=== PATIENT | female | born 1955 | race Caucasian/White ===

== ENCOUNTER 2017-03-01 12:00 | Day surgery (SDC) | payer BC ==
[2017-02-28 11:51] VITALS: BMI 41.0
[2017-03-01 13:25] VITALS: TEMP 97.5
[2017-03-01 14:55] LABS: BASOPHIL 0.4 % (0-2.0); EOSINOPHIL 1.3 % (0-4.5); MCH 29.8 pg (25.7-33.7); MCHC 33.9 g/dl (32.0-36.0); MEAN CELL VOLUME 87.8 fl (80-96); MEAN PLT VOLUME 8.7 fl (7.5-11.1); NEUTROPHILS 70.7 % (42.8-82.8); PLATELET COUNT 167 K/MM3 (134-434); RDW 13.4 % (11.6-15.6)
[2017-03-01 15:08] VITALS: BP 122/73; PULSE 69
[2017-03-01 15:34] LABS: ALBUMIN 3.3 g/dl (3.4-5.0); ALK PHOS 81 U/L (45-117); ANION GAP 10 (8-16); BILIRUBIN,TOTAL 0.9 mg/dL (0.2-1.0); CALCIUM 8.6 mg/dL (8.5-10.1); CO2 26 mmol/L (21-32); CREATININE 0.7 mg/dL (0.55-1.02); FERRITIN 103.562 ng/ml (6.9-282.5); GLUCOSE,RANDOM 76 mg/dL (74-106); SGOT/AST 23 U/L (15-37); SGPT/ALT 27 U/L (12-78); TOT PROT 5.9 g/dl (6.4-8.2)
--- NOTE | 2017-03-04 11:51 | PATH ---
Surgical Pathology Report Patient Name: ARCELIA JOHNSON [facility]. Rec. #: [id number] /Age/Gender: 1955 (Age: 61) / F Account: [id number] Location: U-ENDOSCOPY Taken: 03/01/2017 Received: 03/01/2017 Reported: 03/04/2017 Physicians: Emil Richter M.D. Specimen(s) Received A: BX 2ND PORTION DUODENUM/BULB B: BX ANTRUM C: BX GE JUNCTION Clinical History Abdominal pain Duodenal ulcer, gastritis, hiatal hernia Final Diagnosis A. DUODENUM, SECOND PORTION AND BULB, BIOPSY: DUODENAL MUCOSA WITH CHRONIC INFLAMMATION, [place] HYPERPLASIA AND FOCAL GASTRIC METAPLASIA CONSISTENT WITH PEPTIC DUODENITIS. NO HISTOLOGIC EVIDENCE OF GLUTEN SENSITIVE ENTEROPATHY (CELIAC DISEASE). B. STOMACH, ANTRUM, BIOPSY: GASTRIC ANTRAL MUCOSA WITH MODERATE CHRONIC GASTRITIS. IMMUNOSTAIN FOR H. PYLORI IS NEGATIVE FOR ORGANISMS. C. GE JUNCTION, BIOPSY: SQUAMOUS EPITHELIUM WITH CHRONIC INFLAMMATION AND REFLUX TYPE CHANGES. NO COLUMNAR EPITHELIUM PRESENT (NO INTESTINAL METAPLASIA /BECKETT'S ESOPHAGUS IDENTIFIED). Electronically Signed Rob Griffiths M.D. Gross Description A. Received in formalin, labeled "biopsy second portion of duodenum and duodenal bulb" are 3 preston, irregular portions of soft tissue ranging from 0.3-0.4 cm in greatest dimension. The specimens are submitted in toto in one cassette. B. Received in formalin, labeled "biopsy antrum" are 4 preston, irregular portions of soft tissue ranging from 0.1-0.5 cm in greatest dimension. The specimens are submitted in toto in one cassette. C. Received in formalin, labeled "biopsy GE junction" are 2 preston, irregular portions of soft tissue measuring 0.1 and 0.3 cm in greatest dimension. The specimens are submitted in toto in one cassette. 03/01/201703/01/2017
[2017-03-05 06:10] LABS: SERUM IRON 106 ug/dL (27-159); TOTAL IRON BINDING CAPACITY 297 ug/dL (250-450); UIBC 191 ug/dL (131-425)
[2017-03-05 16:30] LABS: GASTRIN 12 pg/mL (0-115)
== END 2017-03-01 15:00 | disposition home or self-care (01) ==
LOC: JASU-ENDO 12:00
PROVIDERS: ATTEND Internal Medicine Gastroenterology
PROC: 0DB68ZX Excision of Stomach, Via Natural or Artificial Opening Endoscopic, Diagnostic (ICD-10-PCS; 2017-03-01)
PROC: 0DB38ZX Excision of Lower Esophagus, Via Natural or Artificial Opening Endoscopic, Diagnostic (ICD-10-PCS; principal; 2017-03-01 13:00)
DX: K21.9 Gastro-esophageal reflux disease without esophagitis (principal); K44.9 Diaphragmatic hernia without obstruction or gangrene; K25.9 Gastric ulcer, unspecified as acute or chronic, without hemorrhage or perforation; K29.80 Duodenitis without bleeding; K26.9 Duodenal ulcer, unspecified as acute or chronic, without hemorrhage or perforation
CPT/HCPCS: 36415; 80053; 82103; 82172; 82247; 82390; 82465; 82728; 82941; 82947; 82977; 83010; 83516; 83540; 83550; 83883; 84450; 84460; 84478; 85025; 86038; 88305-TC; 88342-TC

== ENCOUNTER 2018-10-07 06:05 | Inpatient (IN) | payer BC ==
[2018-10-07] MEDS ORDERED: oxyCODONE HCL 10 MG SUSTAINED ACTING TABLET PO ONE (06:37)
[2018-10-07] MEDS ORDERED: CELECOXIB 200 MG CAPSULE PO ONE (06:37)
[2018-10-07] MEDS ORDERED: CEFAZOLIN 2 GM in DEXTROSE 5%-WATER - 50 ML IVPB ONE (06:37)
[2018-10-07] MEDS ORDERED: TRANEXAMIC ACID 1000 MG/10 ML VIAL IVPUSH ONE (06:37)
[2018-10-07] MEDS ORDERED: GABAPENTIN 300 MG CAPSULE (FP) PO ONE (06:37)
[2018-10-07 06:44] VITALS: BMI 40.6
[2018-10-07] MEDS ORDERED: BUPIVACAINE LIPOSOME/PF (EXPAREL) 266 MG/20 ML VIAL ONE (07:15)
[2018-10-07] MEDS ORDERED: MIDAZOLAM HCL 2 MG/2 ML SINGLE DOSE VIAL ONE ×2 (07:15→08:28)
[2018-10-07] MEDS ORDERED: SODIUM CHLORIDE 0.9% P/F 10 ML VIAL IJ ONE (07:15)
--- NOTE | 2018-10-07 07:57 | HP ---
Satellite [facility] - Chief Complaint Chief Complaint: left knee pain - Past Medical History Allergies/Adverse Reactions: Allergies Allergy/AdvReac Type Severity Reaction Status Date / Time No Known Drug Allergies Allergy Verified 09/16/18 14:52 - Current Medications Current Medications: Home Medications Medication Instructions Recorded Montelukast Na [Singulair -] 10 mg PO HS 12/24/13 Cholecalciferol (Vitamin D3) 400 unit PO DAILY 03/01/17 [Vitamin D -] Cranberry 400 mg PO DAILY 03/01/17 Fluticasone/Vilanterol [Breo 1 each IH BID 03/01/17 Ellipta 100-25 Mcg INH] Pantoprazole Sodium 40 mg PO DAILY #90 tablet. 03/01/17 Olmesartan Medoxomil 40 mg PO DAILY 09/16/18 Satellite Physical Exam - Physical Examination Vital Signs: Vital Signs Period Temp Pulse Resp BP Sys/Good Pulse Ox Last 24 Hr 98.1 F 70 18 130/75 General Appearance: Well Nourished, Well Developed, Alert & Oriented x3 ENT: Clear Lung: Normal air movement Heart: Regular rate & rhythm Extremities: Other (left knee- + swelling, + ttp, dec rom, nvi xrays show grade 4 tricompartmental djd) Neurological: Intact, Alert, Oriented Satellite Impression/Plan - Impression/Plan Impression: left knee djd Operative Procedure: left singh tkr Date to be Performed: 10/07/18
[2018-10-07] MEDS ORDERED: ceFAZolin SODIUM 1 GM VIAL ONE (08:30)
[2018-10-07] MEDS ORDERED: PROPOFOL 20 ML ONE ×2 (08:33)
[2018-10-07] MEDS ORDERED: ePHEDrine SULFATE 50 MG/1 ML AMPULE ONE (08:42)
[2018-10-07] MEDS ORDERED: GLYCOPYRROLATE 0.2 MG/1 ML VIAL ONE (08:46)
[2018-10-07] MEDS ORDERED: PHENYLEPHRINE HCL 10 MG/1 ML SINGLE DOSE VIAL ONE (09:09)
[2018-10-07] MEDS ORDERED: MAG HYDROX/AL HYDROX/SIMETH 30 ML UNIT-DOSE CUP PO PRN (09:58)
[2018-10-07] MEDS ORDERED: ONDANSETRON 4 MG/2 ML VIAL IVPUSH PRN ×2 (09:58→10:15)
[2018-10-07] MEDS ORDERED: MAGNESIUM HYDROX 2400MG/30ML ORAL SUSPENSION 30 ML CUP PO PRN (09:58)
[2018-10-07] MEDS ORDERED: LACTATED RINGERS SOLUTION 1,000 ML IV SCH ×2 (10:00→10:15)
[2018-10-07] MEDS ORDERED: PATIENT'S OWN MEDICATION (NON-FORMULARY) (Olmesartan Medoxomil [Olmesartan Medoxomil] 40 M PO SCH (10:00)
--- NOTE | 2018-10-07 10:00 | OP ---
Operative Note - Note: Operative Date: 10/07/18 (yesica) Pre-Operative Diagnosis: left knee djd Operation: left singh tkr Post-Operative Diagnosis: Same as Pre-op Surgeon: Boo Morales Continuous Miner: Jaylen Thomson) Anesthesiologist/WAX PUMPER: Armando Wright Anesthesia: Spinal, Local Specimens Removed: bone fragments Estimated Blood Loss (mls): 150 Operative Report Dictated: Yes
[2018-10-07] MEDS ORDERED: ACETAMINOPHEN 1000 MG/100 ML VIAL (NON FORMULARY) IVPB ONE (10:15)
[2018-10-07] MEDS ORDERED: ONDANSETRON 4 MG/2 ML VIAL ONE (11:27)
[2018-10-07] MEDS: oxyCODONE HCL 5 MG TABLET PO PRN ×3 (11:45→19:24)
[2018-10-07] MEDS ORDERED: oxyCODONE HCL 5 MG TABLET ONE (11:48)
--- NOTE | 2018-10-07 15:09 | SPEC ---
DATE OF OPERATION: 10/07/2018 PREOPERATIVE DIAGNOSIS: Degenerative joint disease, left knee. POSTOPERATIVE DIAGNOSIS: Degenerative joint disease, left knee. PROCEDURE: Left total knee replacement with robotic-assisted navigation (MAKOplasty). SURGICAL ATTENDING: Boo Morales MD MACHINE STAKER: MOHSEN Norwood SECOND TIE TAPE MACHINE OPERATOR : Kaila Barcenas MD ANESTHESIA: Regional and spinal. CLOSURE: A Press-Fit Triathlon knee system with a 4 femur, 4 tibia, 9 polyethylene, a 32 patella; No. 1 Vicryl, fascia; 0 and 2-0 for subcutaneous; and 3-0 Monocryl subcuticular with skin glue for skin; 4-0 undyed Vicryl for pin sites. ESTIMATED BLOOD LOSS: 100 mL. COMPLICATIONS: None. CONDITION: To recovery room in stable condition. DESCRIPTION OF OPERATIVE PROCEDURE: Patient was taken to the operating room on October 07, 2018. Regional and spinal anesthesia was administered by the anesthesiologist. IV Kefzol was administered prophylactically prior to the case as well as TXA. The left lower extremity was prepped and draped in the usual sterile fashion. The midline 10- to 12-cm longitudinal incision was made. Hemostasis was achieved with Bovie cautery. Sharp dissection was carried down to the extensor mechanism which was perform the procedure. Medial parapatellar arthrotomy was then performed, leaving a cuff of tissue for later closure. The patella was inverted and the knee was flexed up. The fat pad was excised. Subperiosteal dissection was done on the anteromedial proximal tibia until the knee was able to be brought forward. This was facilitated by taking the ACL, PCL and medial and lateral menisci. Checkpoints were placed in both the femur and in the tibia. Two parallel threaded pins were drilled superior to the knee joint through the already made incision from anterior to posterior just going through the anterior cortex but just engaging but not going through the posterior cortex. Two threaded pins were drilled through 2 small stab incisions in parallel fashion 1 handbreadth below the tibial tubercle through the anterior cortex of the tibia and engaging but not going through the posterior cortex. Both sets of pins were attached to navigation arrays for the JORGE system. The knee was then registered with the navigation system with center of rotation of the hip, medial and lateral malleoli and multiple sites both on the tibia and on the femur. Confirmation of excellent registration was confirmed by "popping the bubbles." At this time, the knee was thoroughly inspected to remove all osteophytes around the knee. The knee was then tensioned in varus/valgus at both full extension and at 90 degrees of flexion to ascertain our gaps. The virtual position of the components was optimized to ensure equal gaps throughout the range of motion. Once this was performed, the robot was brought into the field, was registered. The bone was cut as per the specifications on both the tibia and on the femur. The box cuts were then made as well. Excellent trial stability was obtained on the femur. The tibial baseplate was allowed to "find itself" and then was clipped into place. Confirmation of excellent external rotation of that component was confirmed by the navigation device as well. The patella was calibered for thickness and cut at the appropriate level. The appropriate lollipop was used to drill 3 holes in the patella and a trial asymmetric patellar button was applied. The knee was taken through a range of motion and found to have excellent stability from full extension to full flexion with excellent tracking of the patella. The trial components were then removed. The lug holes were drilled in the femur. The cementless keel was punched in the tibia. The real Press-Fit components were malleted into place, first with the tibia and then with the femur, and then the patella was crimped into place as well. The real polyethylene liner was then clipped into place. Range of motion, stability and tracking were as described earlier. The knee was thoroughly irrigated with copious amounts of irrigation. Vancomycin powder was placed inside the joint. The medial parapatellar arthrotomy was then closed using No. 1 Vicryl interrupted suture. Post closure of the arthrotomy, the knee was taken through a range of motion and found to have no undue tension on the repair. The subcutaneous was then pulse antibiotic irrigated, closed with 0 and 2-0 Vicryl and 3-0 Monocryl subcuticular with skin glue for the skin. Prior to closure, the checkpoints were removed as were the threaded pins. The tibial pin sites were closed with 4-0 undyed Vicryl. A sterile pressure Aquacel dressing was applied. No tourniquet was used during the case. The total blood loss was approximately 100 mL. No complication. Patient was transferred to recovery in stable condition. KAILA BARCENAS M.D. RICHAR/[id number] RBITT
[2018-10-07] MEDS: CEFAZOLIN 2 GM/D5W 2 GM/50 ML ML IVPB SCH (17:02)
[2018-10-07] MEDS: MONTELUKAST NA 10 MG TABLET PO SCH (21:22)
[2018-10-07] MEDS: oxyCODONE HCL 10 MG SUSTAINED ACTING TABLET PO SCH (21:23)
[2018-10-07] MEDS: SENNOSIDES/DOCUSATE COMBO (SENNA PLUS) TABLET (UD) PO SCH (21:23)
[2018-10-07] MEDS: GABAPENTIN 300 MG CAPSULE (FP) PO SCH (21:23)
[2018-10-08] MEDS: CEFAZOLIN 2 GM/D5W 2 GM/50 ML ML IVPB SCH (00:36)
[2018-10-08] MEDS: oxyCODONE HCL 5 MG TABLET PO PRN ×5 (00:39→22:35)
[2018-10-08] MEDS: PANTOPRAZOLE 40 MG TABLET (FP) PO SCH ×2 (07:29→09:30)
[2018-10-08] MEDS: SENNOSIDES/DOCUSATE COMBO (SENNA PLUS) TABLET (UD) PO SCH ×3 (07:29→21:25)
[2018-10-08] MEDS: MULTIVITAMINS (DAILY MVI) TABLET (FP) PO SCH ×2 (07:29→09:30)
[2018-10-08] MEDS: ASPIRIN 325 MG TABLET PO SCH (07:59)
[2018-10-08 08:24] LABS: HEMOGLOBIN 12.4 GM/dl (10.7-15.3); MCH 31.1 pg (25.7-33.7); MCHC 34.3 g/dl (32.0-36.0); MEAN CELL VOLUME 90.7 fl (80-96); MEAN PLT VOLUME 9.1 fl (7.5-11.1); PLATELET COUNT 163 K/MM3 (134-434); RBC 3.96 M/mm3 (3.60-5.2); WHITE BLOOD COUNT 8.8 K/mm3 (4.0-10.8)
[2018-10-08] MEDS: GABAPENTIN 300 MG CAPSULE (FP) PO SCH ×2 (09:29→21:25)
[2018-10-08] MEDS: oxyCODONE HCL 10 MG SUSTAINED ACTING TABLET PO SCH ×2 (09:30→21:26)
[2018-10-08] MEDS: VALSARTAN 160 MG TABLET (UD) PO SCH (09:31)
--- NOTE | 2018-10-08 10:15 | PN ---
Progress Note (short form) - Note Progress Note: Ortho Pt seen and examined s/p left singh tkr pod #1 Selected Entries 10/08/18 09:28 Temperature 98.3 F Pulse Rate 61 Respiratory 18 Rate Blood Pressure 100/48 L Laboratory Tests 10/08/18 08:00 WBC 8.8 Hgb 12.4 Hct 36.0 Plt Count 163 dressing c/d/i, calf soft, nt rom 0-30, nvi a/p PT dvt ppx pain control d/c home tomorrow if stable
[2018-10-08] MEDS ORDERED: ZOLPIDEM TARTRATE 5 MG TABLET PO PRN (10:16)
--- NOTE | 2018-10-08 12:16 | PN ---
Progress Note (short form) - Note Progress Note: ANESTHESIA POSTOP 63 yo female POD 1 s/p TKA Patient doing well. Tolerating PO. Ambulating with some pain but able to participated in PT. O: VSS, Afebrile A/P: Continue current care. Encouraged ambulation and active PT participation. No complications evident
[2018-10-08] MEDS ORDERED: PT OWN MED DRAWER 7, Y5N ONE (21:18)
[2018-10-08] MEDS: MONTELUKAST NA 10 MG TABLET PO SCH (21:25)
[2018-10-09] MEDS ORDERED: SODIUM CHLORIDE 500 ML IV STA (06:57)
[2018-10-09] MEDS: ASPIRIN 325 MG TABLET PO SCH (08:01)
[2018-10-09 08:17] LABS: HEMATOCRIT 32.6 % (32.4-45.2); HEMOGLOBIN 10.7 GM/dl (10.7-15.3); MCH 29.8 pg (25.7-33.7); MCHC 32.7 g/dl (32.0-36.0); MEAN CELL VOLUME 90.9 fl (80-96); PLATELET COUNT 152 K/MM3 (134-434); RBC 3.58 M/mm3 (3.60-5.2); RDW 11.8 % (11.6-15.6); WHITE BLOOD COUNT 11.8 K/mm3 (4.0-10.8)
[2018-10-09] MEDS: KETOROLAC TROMETHAMINE 30 MG/1 ML VIAL IVPUSH SCH ×3 (09:54→22:05)
[2018-10-09] MEDS: PANTOPRAZOLE 40 MG TABLET (FP) PO SCH (09:55)
[2018-10-09] MEDS: GABAPENTIN 300 MG CAPSULE (FP) PO SCH ×2 (09:55→22:05)
[2018-10-09] MEDS: SENNOSIDES/DOCUSATE COMBO (SENNA PLUS) TABLET (UD) PO SCH ×2 (09:55→22:06)
[2018-10-09] MEDS: MULTIVITAMINS (DAILY MVI) TABLET (FP) PO SCH (09:55)
[2018-10-09] MEDS: oxyCODONE HCL 10 MG SUSTAINED ACTING TABLET PO SCH ×2 (09:56→22:07)
[2018-10-09] MEDS: VALSARTAN 160 MG TABLET (UD) PO SCH (09:56)
--- NOTE | 2018-10-09 09:57 | PN ---
Progress Note (short form) - Note Progress Note: Ortho Pt seen and examined s/p left singh tkr pod #2- pt having low BP Selected Entries 10/09/18 09:27 Temperature 98.8 F Pulse Rate 97 H Respiratory 19 Rate Blood Pressure 79/37 L Laboratory Tests 10/09/18 07:35 WBC 11.8 H Hgb 10.7 Hct 32.6 Plt Count 152 dressing c/d/i, calf soft, nt rom 0-40, nvi a/p D/c narcotics- switched to tylenol and toradol Continue IVF Monitor BP PT dvt ppx pain control d/c home tomorrow if stable
[2018-10-09] MEDS: MONTELUKAST NA 10 MG TABLET PO SCH (22:06)
[2018-10-10] MEDS: KETOROLAC TROMETHAMINE 30 MG/1 ML VIAL IVPUSH SCH (03:09)
[2018-10-10 06:48] VITALS: BP 96/49; PULSE 78; TEMP 98.6
[2018-10-10] MEDS: ASPIRIN 325 MG TABLET PO SCH (09:00)
[2018-10-10] MEDS ORDERED: PT OWN MED DRAWER 7, Y5N ONE (09:08)
--- NOTE | 2018-10-10 09:13 | PN ---
Progress Note (short form) - Note Progress Note: Ortho Pt seen and examined s/p left singh tkr pod #3- BP improved. Pt states she is feeling much better today Selected Entries 10/10/18 06:45 Temperature 98.6 F Pulse Rate 78 Respiratory 18 Rate Blood Pressure 96/49 L Laboratory Tests 10/09/18 07:35 WBC 11.8 H Hgb 10.7 Hct 32.6 Plt Count 152 dressing c/d/i, calf soft, nt rom 0-70, nvi a/p PT dvt ppx pain control hold BP meds today- restart tomorrow d/c to rehab today f/u in the office in 7-10 days
--- NOTE | 2018-10-10 09:15 | DS ---
Physical Examination Vital Signs: Vital Signs Temperature 98.6 F 10/10/18 06:45 Pulse Rate 78 10/10/18 06:45 Respiratory Rate 18 10/10/18 06:45 Blood Pressure 96/49 L 10/10/18 06:45 O2 Sat by Pulse Oximetry (%) 99 10/10/18 08:21 Labs: CBC, BMP 10/09/18 07:35 Discharge Summary Reason For Visit: OSTEOARTHRITIS Procedures: Principal: left tkr Hospital Course: admitted for elective left singh tkr, had hypotension but has improved, otherwise uneventful post-op, stable for d/c Condition: Good - Instructions Diet, Activity, Other Instructions: Post-op Instructions-Total Knee Replacement Call the office for a follow-up appointment in 1 week - [phone] Aspirin 325mg daily for 6 weeks. Pain medication was sent into your pharmacy. Apply Graduated Compression Stockings (TEDs) to both lower extremities- remove daily for hygiene ONLY Apply Sequential Compression Device (SCDs) to both Lower extremities remove for PT and hygiene ONLY Apply cold packs to affected area for 15 minutes every 2 hours. Physical Therapist will come to your home for the first 5 days. You will be set up with outpatient PT at your first post-operative visit. Patient may ambulate as tolerated-encourage self care (at least every 2-3 hours while awake) with walker or cane Maintain Aquacel (waterproof) dressing to operative wound (will be removed by surgeon at first office visit) Shower with Aquacel dressing in place-if Aquacel integrity compromised, remove and apply dry sterile dressing and notify Orthopedist. DO NOT SHOWER unless Orthopedists approves without Aquacel dressing CONTACT THE OFFICE FOR ANY CHANGE IN YOUR CONDITION (for example-fever greater than 102 degrees, excessive bleeding from operative site, purulent drainage, severe swelling or pain) GO TO THE EMERGENCY ROOM IF THERE IS A MEDICAL EMERGENCY Knee Precautions: * Keep a rolled towel under affected heel while in bed or chair (to keep knee in extension) * Keep affected leg elevated except during mealtimes * DO NOT PLACE PILLOW UNDER AFFECTED KNEE * If you have any questions, please do not hesitate to call the office - [phone]. Referrals: Emil Barcenas MD [Staff Physician] - Disposition: [facility]ILITY - Home Medications Comprehensive Discharge Medication List: Ambulatory Orders Luiza Vidal [Kofiir -] 10 mg PO HS 12/24/13 Cholecalciferol (Vitamin D3) [Vitamin D -] 400 unit PO DAILY 03/01/17 Cranberry 400 mg PO DAILY 03/01/17 Fluticasone/Vilanterol [Breo Ellipta 100-25 Mcg INH] 1 each IH BID 03/01/17 Pantoprazole Sodium 40 mg PO DAILY #90 tablet. 03/01/17 Olmesartan Medoxomil 40 mg PO DAILY 09/16/18 Aspirin [ASA -] 325 mg PO DAILY@0800 tablet 10/07/18 Oxycodone HCl/Acetaminophen [Percocet 5-325 mg Tablet -] 1 - 2 tab PO Q6H #50 tab MDD 8 10/07/18
[2018-10-10] MEDS: oxyCODONE HCL 10 MG SUSTAINED ACTING TABLET PO SCH (09:23)
[2018-10-10] MEDS: GABAPENTIN 300 MG CAPSULE (FP) PO SCH (09:23)
[2018-10-10] MEDS: SENNOSIDES/DOCUSATE COMBO (SENNA PLUS) TABLET (UD) PO SCH (09:24)
[2018-10-10] MEDS: PANTOPRAZOLE 40 MG TABLET (FP) PO SCH (09:24)
[2018-10-10] MEDS: MULTIVITAMINS (DAILY MVI) TABLET (FP) PO SCH (09:25)
--- NOTE | 2018-10-13 13:06 | PATH ---
Surgical Pathology Report Patient Name: ARCELIA JOHNSON Med. Rec. #: [id number] /Age/Gender: 1955 (Age: 63) / F Account: [id number] Location: [facility] MED-SURG Taken: 10/07/2018 Received: 10/07/2018 Reported: 10/13/2018 Physicians: Boo Morales M.D. Specimen(s) Received BONE LEFT KNEE Clinical History Osteoarthritis left knee Final Diagnosis BONE, LEFT KNEE, TOTAL KNEE REPLACEMENT: DEGENERATIVE JOINT DISEASE. Electronically Signed Barb Nur M.D. Gross Description Received in formalin labeled "bone left knee," is a 9.0 x 8.0 x 2.0 cm aggregate of multiple portions of bone and soft tissue. The tibial plateau measures 7.1 x 5.0 x 1.3 cm. There is a 1.8 cm greatest dimension area of eburnation present. The remaining articular surfaces are preston-yellow and focally granular. The underlying trabecular bone is yellow and hard. Grain Distributor sections are submitted in one cassette, following decalcification. /10/09/2018 [facility]10/09/2018
== END 2018-10-10 13:22 | DRG 470 ==
LOC: FM/S 06:05
PROVIDERS: ADMIT Orthopaedic Surgery; ATTEND Orthopaedic Surgery
PROC: 8E0Y0CZ Robotic Assisted Procedure of Lower Extremity, Open Approach (ICD-10-PCS; 2018-10-07)
PROC: 0SRD0JZ Replacement of Left Knee Joint with Synthetic Substitute, Open Approach (ICD-10-PCS; principal; 2018-10-07 08:37)
DX: M17.12 Unilateral primary osteoarthritis, left knee (principal); Z68.41 Body mass index [BMI] 40.0-44.9, adult; I10 Essential (primary) hypertension; K21.9 Gastro-esophageal reflux disease without esophagitis; E66.01 Morbid (severe) obesity due to excess calories
CPT/HCPCS: 36415; 73560-TC-LT-FY; 85027; 88304-TC; 88311-TC; 94760; 97116-GP; J0131

== ENCOUNTER 2019-06-15 06:59 | Day surgery (SDC) | payer BC ==
[2019-06-12 14:47] VITALS: BMI 41.3
[2019-06-15] MEDS ORDERED: LIDOCAINE HCL 2% JELLY 10 ML CARTRIDGE ONE (08:40)
[2019-06-15 08:57] VITALS: TEMP 98.2
[2019-06-15 09:59] VITALS: BP 123/76; PULSE 54
--- NOTE | 2019-06-16 17:50 | PATH ---
Surgical Pathology Report Patient Name: ARCELIA JOHNSON [facility]. Rec. #: [id number] /Age/Gender: 1955 (Age: 64) / F Account: [id number] Location: U-ENDOSCOPY Taken: 06/15/2019 Received: 06/15/2019 Reported: 06/16/2019 Physicians: Emil Richter M.D. Specimen(s) Received A: BX STOMACH B: BX GE JUNCTION Clinical History Schatzki's ring, hiatal hernia, GERD, duodenitis, gastritis, hemorrhoids Final Diagnosis A. STOMACH, BIOPSY: GASTRIC MUCOSA WITH CHRONIC GASTRITIS, REACTIVE GASTROPATHY, AND INTESTINAL METAPLASIA. IMMUNOSTAIN FOR H. PYLORI IS NEGATIVE. B. GE JUNCTION /SCHATZKI'S RING, BIOPSY: GASTROESOPHAGEAL JUNCTIONAL MUCOSA WITH REFLUX ESOPHAGITIS. NEGATIVE FOR INTESTINAL METAPLASIA. Electronically Signed Nir Carter M.D. Gross Description A. Received in formalin, labeled "stomach biopsy" are 2 preston, irregular portions of soft tissue measuring 0.1 to 0.3 cm. in greatest dimension. The specimens are submitted in toto in one cassette. B. Received in formalin, labeled "GE junction/Schatzki's ring" are 4 preston, irregular portions of soft tissue measuring 0.1 to 0.2 cm. in greatest dimension. The specimens are submitted in toto in one cassette. __ KWS/06/16/2019 sulki/06/16/2019
== END 2019-06-15 10:25 | disposition home or self-care (01) ==
LOC: JASU-ENDO 06:59
PROVIDERS: ATTEND Internal Medicine Gastroenterology
PROC: 0DB38ZX Excision of Lower Esophagus, Via Natural or Artificial Opening Endoscopic, Diagnostic (ICD-10-PCS; 2019-06-15)
PROC: 0DB68ZX Excision of Stomach, Via Natural or Artificial Opening Endoscopic, Diagnostic (ICD-10-PCS; 2019-06-15)
PROC: 0DB28ZX Excision of Middle Esophagus, Via Natural or Artificial Opening Endoscopic, Diagnostic (ICD-10-PCS; 2019-06-15)
PROC: 0DJD8ZZ Inspection of Lower Intestinal Tract, Via Natural or Artificial Opening Endoscopic (ICD-10-PCS; principal; 2019-06-15 08:45)
DX: K64.8 Other hemorrhoids (principal); K57.30 Diverticulosis of large intestine without perforation or abscess without bleeding; K21.0 Gastro-esophageal reflux disease with esophagitis; K44.9 Diaphragmatic hernia without obstruction or gangrene; K22.2 Esophageal obstruction; K29.60 Other gastritis without bleeding; K29.80 Duodenitis without bleeding
CPT/HCPCS: 88305-TC; 88342-TC

== ENCOUNTER 2019-07-23 08:28 | Emergency (ER) | payer BC ==
[2019-07-23 08:37] VITALS: BP 154/87; PULSE 92; TEMP 98.5; BMI 40.6
[2019-07-23] MEDS ORDERED: ACETAMINOPHEN 325 MG TABLET (FP) PO ONE (09:01)
[2019-07-23] MEDS ORDERED: DIPHTH,PERTUSS(ACELL),TET 0.5 ML DISP.SYRIN IM ONE ×2 (09:01→09:23)
[2019-07-23] MEDS ORDERED: ACETAMINOPHEN 325 MG TABLET (FP) ONE (09:23)
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
== END 2019-07-23 11:19 | disposition home or self-care (01) ==
LOC: JERFT 08:28
PROC: 3E0234Z Introduction of Serum, Toxoid and Vaccine into Muscle, Percutaneous Approach (ICD-10-PCS; principal; 2019-07-23)
DX: S09.8XXA Other specified injuries of head, initial encounter (principal); S00.83XA Contusion of other part of head, initial encounter; S00.03XA Contusion of scalp, initial encounter; S80.212A Abrasion, left knee, initial encounter; S80.211A Abrasion, right knee, initial encounter; V78.4XXA Person boarding or alighting from bus injured in noncollision transport accident, initial encounter; Y93.89 Activity, other specified; Y92.414 Local residential or business street as the place of occurrence of the external cause; Y99.8 Other external cause status; Z79.82 Long term (current) use of aspirin; I10 Essential (primary) hypertension; J45.909 Unspecified asthma, uncomplicated; K76.0 Fatty (change of) liver, not elsewhere classified; Z87.19 Personal history of other diseases of the digestive system; Z96.652 Presence of left artificial knee joint
CPT/HCPCS: 70450-TC; 70486-TC; 72125-TC; 90715; 99281-25

== ENCOUNTER 2021-01-23 10:26 | Emergency (ER) | payer BC ==
[2021-01-23 10:49] VITALS: BP 129/82; PULSE 75; TEMP 98.2; BMI 42.0
== END 2021-01-23 11:57 | disposition home or self-care (01) ==
LOC: JERFT 10:26
DX: H11.31 Conjunctival hemorrhage, right eye (principal)
CPT/HCPCS: 99283-25

== ENCOUNTER 2022-07-03 10:21 | Observation (INO) | payer OTHER, BC ==
[2022-07-03] MEDS ORDERED: ACETAMINOPHEN 500 MG TABLET (FP) PO ONE (11:05)
[2022-07-03] MEDS ORDERED: ACETAMINOPHEN 325 MG TABLET (FP) ONE ×2 (11:27→18:20)
[2022-07-03 11:30] LABS: BASO % 0.6 % (0-2.0); EOS % 3.1 % (0-4.5); HEMATOCRIT 45.3 % (32.4-45.2); HEMOGLOBIN 15.4 GM/dL (10.7-15.3); LYMPH % 16.4 % (8-40); MCH 30.7 pg (25.7-33.7); MCHC 34.1 g/dl (32.0-36.0); MEAN CELL VOLUME 89.9 fl (80-96); MEAN PLT VOLUME 8.5 fl (7.5-11.1); MONO % 9.4 % (3.8-10.2); NEUT % 70.5 % (42.8-82.8); PLATELET COUNT 207 10^3/uL (134-434); RBC 5.03 M/mm3 (3.60-5.2); RDW 13.3 % (11.6-15.6); WHITE BLOOD COUNT 8.6 K/mm3 (4.0-10.0)
[2022-07-03 11:41] LABS: ALBUMIN 3.4 g/dl (3.4-5.0); BLOOD UREA NITROGEN 18.3 mg/dL (7-18)
[2022-07-03 11:44] LABS: CREATININE 0.8 mg/dL (0.55-1.3)
[2022-07-03 11:47] LABS: BILIRUBIN,TOTAL 0.8 mg/dL (0.2-1); TOT PROT 6.5 g/dl (6.4-8.2)
[2022-07-03] MEDS ORDERED: ALBUTEROL SO4 0.083% IH SOL 2.5 MG/3 ML VIAL.NEB. NEB PRN (17:56)
[2022-07-03] MEDS ORDERED: ALBUTEROL SO4 HFA INHALER IH PRN (17:56)
[2022-07-03] MEDS: ACETAMINOPHEN 325 MG TABLET (FP) PO PRN ×2 (18:23→23:48)
[2022-07-03 20:48] VITALS: BMI 28.5
[2022-07-03] MEDS: MONTELUKAST NA 10 MG TABLET PO SCH (21:27)
[2022-07-04] MEDS: ACETAMINOPHEN 325 MG TABLET (FP) PO PRN (06:57)
[2022-07-04 08:54] LABS: HEMATOCRIT 43.6 % (32.4-45.2); HEMOGLOBIN 14.6 GM/dL (10.7-15.3); MCH 29.8 pg (25.7-33.7); MCHC 33.5 g/dl (32.0-36.0); MEAN PLT VOLUME 8.7 fl (7.5-11.1); PLATELET COUNT 209 10^3/uL (134-434); RDW 13.3 % (11.6-15.6); WHITE BLOOD COUNT 7.3 K/mm3 (4.0-10.0)
[2022-07-04 09:20] LABS: ALBUMIN 3.2 g/dl (3.4-5.0); BILIRUBIN,TOTAL 1.4 mg/dL (0.2-1); BLOOD UREA NITROGEN 17.4 mg/dL (7-18); CALCIUM 8.9 mg/dL (8.5-10.1); CREATININE 0.8 mg/dL (0.55-1.3); TOT PROT 6.2 g/dl (6.4-8.2)
[2022-07-04] MEDS ORDERED: FLU VACC QS2022-23(6MOS UP)/PF 60 MCG/0.5 ML SYRINGE IM ONE (10:00)
[2022-07-04] MEDS ORDERED: PNEUMOC 20-VAL CONJ-DIP CRM/PF 0.5 ML SYRINGE IM ONE (10:00)
[2022-07-04] MEDS: VALSARTAN 160 MG TABLET PO SCH (11:02)
[2022-07-04] MEDS: UMECLIDINIUM/VILANTEROL (ANORO) 62.5/25 MCG INHALER IH SCH (11:02)
[2022-07-04] MEDS: ACETAMINOPHEN 1000 MG/100 ML BAG IVPB PRN ×2 (14:00→19:15)
[2022-07-04] MEDS: MECLIZINE HCL 12.5 MG TABLET PO SCH (22:18)
[2022-07-04] MEDS: MONTELUKAST NA 10 MG TABLET PO SCH (22:18)
[2022-07-05] MEDS: MECLIZINE HCL 12.5 MG TABLET PO SCH ×2 (06:33→14:26)
[2022-07-05 07:10] VITALS: PULSE 70
[2022-07-05] MEDS: UMECLIDINIUM/VILANTEROL (ANORO) 62.5/25 MCG INHALER IH SCH (09:25)
[2022-07-05] MEDS: VALSARTAN 160 MG TABLET PO SCH (09:25)
[2022-07-05 16:11] VITALS: BP 121/75; RESP 18; TEMP 97.7
== END 2022-07-05 18:22 | disposition home or self-care (01) ==
LOC: JER 10:21 → JERBED 14:40 → J4W 20:04
PROVIDERS: ADMIT Family Medicine; ATTEND Family Medicine
PROC: 3E033NZ Introduction of Analgesics, Hypnotics, Sedatives into Peripheral Vein, Percutaneous Approach (ICD-10-PCS; principal; 2022-07-03)
PROC: 3E0234Z Introduction of Serum, Toxoid and Vaccine into Muscle, Percutaneous Approach (ICD-10-PCS; 2022-07-03)
DX: S06.5XAA Traumatic subdural hemorrhage with loss of consciousness status unknown, initial encounter (principal); R55 Syncope and collapse; W18.39XA Other fall on same level, initial encounter; Y93.89 Activity, other specified; J45.909 Unspecified asthma, uncomplicated; Y92.89 Other specified places as the place of occurrence of the external cause; Y99.0 Civilian activity done for income or pay; E78.5 Hyperlipidemia, unspecified; E11.9 Type 2 diabetes mellitus without complications; I10 Essential (primary) hypertension; I34.1 Nonrheumatic mitral (valve) prolapse; R09.89 Other specified symptoms and signs involving the circulatory and respiratory systems; K57.92 Diverticulitis of intestine, part unspecified, without perforation or abscess without bleeding; Z23 Encounter for immunization
CPT/HCPCS: 36415; 70450-TC; 71045-TC-FY; 80053; 82962; 83735; 84484; 85025; 85027; 90677; 93005; 93010; 93306-TC; 93308; 96372; 96374; 97116-GP; 97162-GP; 99291; C9803-CS; G0378; Q2036; U0003; U0005

== ENCOUNTER 2023-04-15 05:36 | Day surgery (SDC) | payer BC ==
[2023-04-10 16:00] VITALS: BMI 34.9
[~2023-04-15 05:36] MED LIST: BUPIVACAINE HCL/PF 0.5% (5MG/ML) 10 ML VIAL IJ ONE; LIDOCAINE 1% P/F 10 MG/ML VIAL INF ONE
[2023-04-15] MEDS ORDERED: PROPOFOL 60 ML ONE (09:01)
[2023-04-15] MEDS ORDERED: LIDOCAINE HCL/PF 2% SDV 5ML VIAL ONE (09:01)
[2023-04-15] MEDS ORDERED: MIDAZOLAM HCL 2 MG/2 ML SINGLE DOSE VIAL ONE (09:02)
[2023-04-15] MEDS ORDERED: BUPIVACAINE HCL/PF 0.5% (5MG/ML) 10 ML VIAL ONE (09:30)
[2023-04-15] MEDS ORDERED: ceFAZolin SODIUM 1 GM VIAL ONE (09:58)
[2023-04-15] MEDS ORDERED: ONDANSETRON 4 MG/2 ML VIAL ONE (09:58)
[2023-04-15] MEDS ORDERED: KETOROLAC TROMETHAMINE 30 MG/1 ML VIAL ONE (09:58)
[2023-04-15] MEDS ORDERED: DEXAMETHASONE SOD PHOSPHATE 4 MG/1 ML VIAL ONE (09:58)
[2023-04-15] MEDS ORDERED: ceFAZolin SODIUM 1 GM VIAL IVPB ONE (10:00)
[2023-04-15] MEDS ORDERED: BUPIVACAINE HCL/PF 0.5% (5MG/ML) 10 ML VIAL IJ ONE (10:12)
[2023-04-15] MEDS ORDERED: LIDOCAINE 1% P/F 10 MG/ML VIAL INF ONE (10:12)
[2023-04-15 10:55] VITALS: RESP 18
[2023-04-15 13:51] VITALS: BP 126/65; PULSE 68; TEMP 97.3
== END 2023-04-15 13:52 | disposition home or self-care (01) ==
LOC: JASU-SURG 05:36
PROVIDERS: ATTEND Orthopaedic Surgery
PROC: 0LN70ZZ Release Right Hand Tendon, Open Approach (ICD-10-PCS; principal; 2023-04-15 09:00)
DX: M65.311 Trigger thumb, right thumb (principal)

== ENCOUNTER 2023-08-03 03:36 | Observation (INO) | payer BC, OTHER ==
[2023-08-03] MEDS ORDERED: morphine CARPU-JECT 4 MG/1 ML DISP.SYRIN IVPUSH ONE (04:20)
[2023-08-03] MEDS ORDERED: morphine SULFATE 4 MG/ML VIAL ONE (04:28)
[2023-08-03 05:08] LABS: HEMATOCRIT 47.5 % (32.4-45.2); HEMOGLOBIN 15.6 GM/dL (10.7-15.3); MCH 29.4 pg (25.7-33.7); MCHC 32.8 g/dl (32.0-36.0); MEAN CELL VOLUME 89.6 fl (80-96); MEAN PLT VOLUME 8.8 fl (7.5-11.1); PLATELET COUNT 204 10^3/uL (134-434); RDW 13.4 % (11.6-15.6); WHITE BLOOD COUNT 11.4 K/mm3 (4.0-10.0)
[2023-08-03] MEDS ORDERED: LIDOCAINE HCL 1%, 10 MG/ML (20ML VIAL) ONE (05:29)
[2023-08-03 05:33] LABS: POTASSIUM 5.5 mmol/L (3.5-5.1)
[2023-08-03 05:35] LABS: CALCIUM 9.1 mg/dL (8.5-10.1)
[2023-08-03 05:36] LABS: ALBUMIN 3.5 g/dl (3.4-5.0); BLOOD UREA NITROGEN 15.7 mg/dL (7-18)
[2023-08-03 05:39] LABS: CREATININE 0.9 mg/dL (0.55-1.3)
[2023-08-03 05:40] LABS: BILIRUBIN,TOTAL 1.3 mg/dL (0.2-1); TOT PROT 7.2 g/dl (6.4-8.2)
[2023-08-03 06:35] LABS: ERYTHROCYTE SEDIMENTATION RATE 18 mm/hr (0-30)
[2023-08-03] MEDS ORDERED: ALBUTEROL SO4 HFA INHALER IH PRN (11:37)
[2023-08-03] MEDS ORDERED: DOCUSATE SODIUM 100 MG CAPSULE (FP) PO PRN (11:37)
[2023-08-03] MEDS ORDERED: oxyCODONE HCL 5 MG TABLET ONE ×2 (13:32→19:22)
[2023-08-03] MEDS: oxyCODONE HCL 5 MG TABLET PO PRN ×2 (13:35→19:25)
[2023-08-03 19:41] LABS: URIC ACID 7.3 mg/dL (2.6-7.2)
[2023-08-03] MEDS ORDERED: MONTELUKAST NA 10 MG TABLET ONE (20:40)
[2023-08-03] MEDS: MONTELUKAST NA 10 MG TABLET PO SCH (21:42)
[2023-08-04] MEDS ORDERED: ACETAMINOPHEN 325 MG TABLET (FP) ONE (01:03)
[2023-08-04] MEDS: ACETAMINOPHEN 325 MG TABLET (FP) PO PRN ×2 (01:11→18:05)
[2023-08-04] MEDS ORDERED: oxyCODONE HCL 5 MG TABLET ONE (05:43)
[2023-08-04] MEDS: oxyCODONE HCL 5 MG TABLET PO PRN ×2 (05:44→18:04)
[2023-08-04 06:56] LABS: POTASSIUM 3.2 mmol/L (3.5-5.1)
[2023-08-04 06:59] LABS: CALCIUM 8.6 mg/dL (8.5-10.1)
[2023-08-04 07:00] LABS: BLOOD UREA NITROGEN 19.3 mg/dL (7-18); MAGNESIUM 1.7 mg/dL (1.8-2.4)
[2023-08-04 07:03] LABS: CREATININE 0.7 mg/dL (0.55-1.3)
[2023-08-04] MEDS: VALSARTAN 160 MG TABLET PO SCH ×2 (08:32→09:22)
[2023-08-04] MEDS: HYDROCHLOROTHIAZIDE 12.5 MG CAPSULE (FP) PO SCH ×2 (08:33→09:22)
[2023-08-04] MEDS: FLUTICASONE/UMECLIDIN/VILANTER(200-62.5-25 TRELEGY ELLIPTA) INAHLER IH SCH (09:58)
[2023-08-04 10:22] LABS: EPI CELLS 10 /uL (0-25.1); HYALINE CASTS 1 /uL (0-3.1); PH,URINE 5.5 (5.0-8.0); URINE APPEARANCE CLEAR; URINE BACTERIA 33 /uL (0-1359); URINE BILIRUBIN NEGATIVE (NEGATIVE); URINE COLOR YELLOW; URINE GLUCOSE (UA) NEGATIVE (NEGATIVE); URINE KETONE NEGATIVE (NEGATIVE); URINE LEUK ESTERASE NEGATIVE (NEGATIVE); URINE NITRITE NEGATIVE (NEGATIVE); URINE PROTEIN NEGATIVE (NEGATIVE); URINE RBC 27 /uL (0-23.9); URINE UROBILINOGEN 0.2 mg/dL (0.2-1.0); URINE WBC 8 /uL (0-25.8)
[2023-08-04] MEDS ORDERED: KETOROLAC TROMETHAMINE 30 MG/1 ML VIAL IVPUSH ONE (11:12)
[2023-08-04] MEDS ORDERED: POTASSIUM CHLORIDE TABS 10 MEQ TABLET.ER (FP) PO ONE (11:30)
[2023-08-04] MEDS ORDERED: COLCHICINE 0.6 MG TAB ONE (11:55)
[2023-08-04] MEDS ORDERED: KETOROLAC TROMETHAMINE 30 MG/1 ML VIAL ONE (11:55)
[2023-08-04] MEDS ORDERED: POTASSIUM CHLORIDE TABS 20 MEQ TABLET.ER (FP) PO ONE (11:55)
[2023-08-04] MEDS ORDERED: COLCHICINE 0.6 MG CAP PO ONE (12:30)
[2023-08-04] MEDS ORDERED: HEPARIN NA (PORCINE) 5,000 UNITS/ML 1ML VIAL ONE (13:56)
[2023-08-04] MEDS ORDERED: MAGNESIUM OXIDE 400 MG TABLET (FP) ONE (13:56)
[2023-08-04] MEDS: HEPARIN NA (PORCINE) 5,000 UNITS/ML 1ML VIAL SQ SCH ×2 (13:57→21:28)
[2023-08-04] MEDS ORDERED: MAGNESIUM OXIDE 400 MG TABLET (FP) PO ONE (14:15)
[2023-08-04] MEDS ORDERED: POTASSIUM CHLORIDE ORAL LIQUID 20 MEQ/15 ML PO ONE (14:15)
[2023-08-04] MEDS ORDERED: PNEUMOC 20-VAL CONJ-DIP CRM/PF 0.5 ML SYRINGE IM ONE (15:41)
[2023-08-04 15:54] VITALS: BMI 35.7
[2023-08-04] MEDS ORDERED: FLU VACCINE (FLULAVAL) PF 60 MCG/0.5 ML SYRINGE 2023-2024 IM ONE (17:00)
[2023-08-04] MEDS: POLYETHYLENE GLYCOL (HEALTHYLAX) 3350 17 GM PACKET PO PRN (17:54)
[2023-08-04] MEDS: MONTELUKAST NA 10 MG TABLET PO SCH (21:28)
[2023-08-05] MEDS: ACETAMINOPHEN 325 MG TABLET (FP) PO PRN ×4 (01:10→21:54)
[2023-08-05] MEDS: oxyCODONE HCL 5 MG TABLET PO PRN (02:53)
[2023-08-05] MEDS: HEPARIN NA (PORCINE) 5,000 UNITS/ML 1ML VIAL SQ SCH ×3 (05:13→21:56)
[2023-08-05] MEDS: HYDROCHLOROTHIAZIDE 12.5 MG CAPSULE (FP) PO SCH (09:04)
[2023-08-05] MEDS: VALSARTAN 160 MG TABLET PO SCH (09:04)
[2023-08-05] MEDS: FLUTICASONE/UMECLIDIN/VILANTER(200-62.5-25 TRELEGY ELLIPTA) INAHLER IH SCH (12:06)
[2023-08-05] MEDS: POLYETHYLENE GLYCOL (HEALTHYLAX) 3350 17 GM PACKET PO PRN (14:34)
[2023-08-05] MEDS: COLCHICINE 0.6 MG CAPSULE PO SCH (21:51)
[2023-08-05] MEDS: MONTELUKAST NA 10 MG TABLET PO SCH (21:54)
[2023-08-06] MEDS: HEPARIN NA (PORCINE) 5,000 UNITS/ML 1ML VIAL SQ SCH ×3 (06:02→21:29)
[2023-08-06] MEDS: COLCHICINE 0.6 MG CAPSULE PO SCH (12:03)
[2023-08-06] MEDS: VALSARTAN 160 MG TABLET PO SCH (12:03)
[2023-08-06] MEDS: HYDROCHLOROTHIAZIDE 12.5 MG CAPSULE (FP) PO SCH (12:03)
[2023-08-06] MEDS: FLUTICASONE/UMECLIDIN/VILANTER(200-62.5-25 TRELEGY ELLIPTA) INAHLER IH SCH (12:04)
[2023-08-06 16:58] VITALS: RESP 18
[2023-08-06] MEDS: MONTELUKAST NA 10 MG TABLET PO SCH (21:29)
[2023-08-06] MEDS: ACETAMINOPHEN 325 MG TABLET (FP) PO PRN (21:29)
[2023-08-06] MEDS: POLYETHYLENE GLYCOL (HEALTHYLAX) 3350 17 GM PACKET PO PRN (21:33)
[2023-08-07] MEDS: ACETAMINOPHEN 325 MG TABLET (FP) PO PRN (05:27)
[2023-08-07] MEDS: HEPARIN NA (PORCINE) 5,000 UNITS/ML 1ML VIAL SQ SCH (05:27)
[2023-08-07] MEDS ORDERED: COLCHICINE 0.6 MG TAB PO SCH (10:00)
[2023-08-07] MEDS: FLUTICASONE/UMECLIDIN/VILANTER(200-62.5-25 TRELEGY ELLIPTA) INAHLER IH SCH (10:36)
[2023-08-07] MEDS: HYDROCHLOROTHIAZIDE 12.5 MG CAPSULE (FP) PO SCH (10:36)
[2023-08-07] MEDS: VALSARTAN 160 MG TABLET PO SCH (10:36)
[2023-08-07 10:47] VITALS: BP 139/79; PULSE 69; TEMP 97.7
== END 2023-08-07 13:13 | disposition left against medical advice (07) ==
LOC: JER 03:36 → JERBED 06:32 → J7W 08-04 14:43
PROVIDERS: ADMIT Family Medicine; ATTEND Family Medicine
PROC: 3E023GC Introduction of Other Therapeutic Substance into Muscle, Percutaneous Approach (ICD-10-PCS; principal; 2023-08-03)
PROC: 3E0233Z Introduction of Anti-inflammatory into Muscle, Percutaneous Approach (ICD-10-PCS; 2023-08-03)
PROC: 3E023GC Introduction of Other Therapeutic Substance into Muscle, Percutaneous Approach (ICD-10-PCS; 2023-08-03)
PROC: 3E033NZ Introduction of Analgesics, Hypnotics, Sedatives into Peripheral Vein, Percutaneous Approach (ICD-10-PCS; 2023-08-03)
DX: M79.606 Pain in leg, unspecified (principal); J45.909 Unspecified asthma, uncomplicated; I10 Essential (primary) hypertension; M19.90 Unspecified osteoarthritis, unspecified site; E87.6 Hypokalemia; M62.81 Muscle weakness (generalized); W18.39XA Other fall on same level, initial encounter; Y93.89 Activity, other specified; Y92.89 Other specified places as the place of occurrence of the external cause; Z88.8 Allergy status to other drugs, medicaments and biological substances
CPT/HCPCS: 36415; 71045-TC-FY; 73560-TC-RT-FY; 80048; 80053; 81003; 83735; 84550; 85027; 85651; 86140; 87040; 87635; 90686; 93005; 93010; 96372; 96374; 96375; 97116-GP; 99285-25; G0378; J1644

== ENCOUNTER 2024-07-17 04:27 | Day surgery (SDC) | payer BC ==
[2024-07-07 14:37] VITALS: BMI 32.9
[2024-07-17 09:23] VITALS: TEMP 98.8
[2024-07-17 09:40] VITALS: RESP 18
[2024-07-17 11:11] VITALS: BP 113/65; PULSE 64
== END 2024-07-17 11:12 | disposition home or self-care (01) ==
LOC: JASU-ENDO 04:27
PROVIDERS: ATTEND Internal Medicine Gastroenterology
PROC: 0DJD8ZZ Inspection of Lower Intestinal Tract, Via Natural or Artificial Opening Endoscopic (ICD-10-PCS; principal; 2024-07-17 09:00)
DX: Z12.11 Encounter for screening for malignant neoplasm of colon (principal); K57.30 Diverticulosis of large intestine without perforation or abscess without bleeding; Z83.719 Family history of colon polyps, unspecified